=== PATIENT | female | born 1965 | race Caucasian/White ===

== ENCOUNTER 2019-02-22 06:26 | Day surgery (SDC) | payer BC, OTHER ==
[2019-02-22] MEDS ORDERED: Sodium Bicarbonate 8.4% IV* 50 ML VIAL ONE (06:38)
[2019-02-22] MEDS ORDERED: Lidocaine 1% w EPI 1:200,000* SDV 30 ML VIAL ONE (06:38)
[2019-02-22] MEDS ORDERED: Bupivacaine 0.25% SDV* 30 ML ONE (07:29)
[2019-02-22 09:13] VITALS: BP 137/83
--- NOTE | 2019-02-22 10:36 | OP ---
DATE OF OPERATION: 02/22/19 [facility] DATE OF : 65 SURGEON: Mello Wong MD. MEDICAL HEALTH RESEARCHER: BISHNU Alaniz. ANESTHESIOLOGIST: None. ANESTHESIA: Local only with 1% lidocaine with epinephrine and bicarbonate. PRE-OP DIAGNOSIS: Right dorsal foot soft tissue mass. POST-OP DIAGNOSIS: Right dorsal foot soft tissue mass. OPERATIVE PROCEDURE: Excision of right dorsal foot soft tissue mass. INDICATIONS: Arcelia had the mass, it has been there for some time. We talked about her options. She wanted to have it excised. ESTIMATED BLOOD LOSS: 2 mL. COMPLICATIONS: None. FINDINGS: See above and below. DESCRIPTION OF PROCEDURE: Arcelia was seen in the preoperative holding area. The correct side, site and procedure were identified. We came back to the operating room where she was positioned supine on the stretcher with the bump under the hip and the foot elevated on some blankets. Foot was then prepped and draped in usual fashion. Timeout was performed. She had already been anesthetized with 1% buffered lidocaine. The foot was exsanguinated with the Esmarch and the calf tourniquet was inflated to 250 mmHg. I then made a longitudinal incision over the mass. Dissection was carried down. The margins of the soft tissue were released around the mass and was tracked down to the bones on the dorsum of the foot where it was a ganglion cyst that was emanating off that. It was taken off right at the joint capsule and that joint capsule was cauterized. Ragnell retractors were used to protect the tendons and other important dorsal soft tissue structures during the mass excision. Once I had cauterized the base and everything was looking good, we irrigated out the wound. Skin was closed with 3 -0 nylon suture, a soft dressing was applied, and she was taken to the recovery room in stable condition. [id number]/[facility] #: [id number] [facility]ENTERFaith
== END 2019-02-22 08:12 | disposition home or self-care (01) ==
LOC: OREAST 06:26
PROVIDERS: ATTEND Orthopaedic Surgery Hand Surgery
DX: M67.471 Ganglion, right ankle and foot (principal); I10 Essential (primary) hypertension; J45.909 Unspecified asthma, uncomplicated; K21.9 Gastro-esophageal reflux disease without esophagitis; Z91.012 Allergy to eggs; Z91.011 Allergy to milk products
CPT/HCPCS: 88304; J2001; J3490